=== PATIENT | female | born 1965 | race Caucasian/White ===

== ENCOUNTER → 2019-05-03 07:17 | Outpatient (CLI) | payer OTHER, SELFPAY ==
[2019-05-02 13:27] VITALS: BMI 35.4
[2019-05-03 08:17] LABS: Absolute Lymphocyte Count 2.63 X10^3/uL (0.83-4.51); Absolute Neutrophil Count 5.3 X10^3/uL (2.0-7.7); Basophil# 0.04 X10^3/uL; Basophil% 0.4 % (0-1); Eosinophil# 0.21 X10^3/uL; Eosinophils% 2.3 % (0-5); Hematocrit 44.1 % (37-47); Hemoglobin 14.5 g/dL (12.0-15.0); Lymphocyte # 2.63 X10^3/ul (4.0); Lymphocyte % 28.8 % (19-41); Mean Corp Hgb Conc 32.9 g/dL (32-36); Mean Corpuscular Hgb 29.3 pg (27.0-32.0); Mean Corpuscular Volume 89.1 fL (81-99); Mean Platelet Vol. 10.9 fl (6.2-12.0); Monocyte% 9.9 % (0-10); NRBC Flagged by Analyzer 0 % (0-5); Neutrophil # 5.32 X10^3/uL (2.7-7.7); Neutrophil % 58.3 % (47-70); Platelet Count 361 K/mm3 (150-450); RBC Distribution Width CV 13.2 % (11.6-14.6); RBC Distribution Width SD 42.9 fl (35.1-43.9); Red Blood Count 4.95 M/mm3 (4.2-5.4); White Blood Count 9.1 K/mm3 (4.4-11.0)
[2019-05-03 08:24] LABS: Erythrocyte Sedimentation Rate 46 mm/hr (0-30)
[2019-05-03 08:42] LABS: ALB/GLOB Ratio 0.9 RATIO (0.9-2.4); AST(SGOT) 20 U/L (15-37); Alanine Aminotransfer ALT/SGPT 30 U/L (13-56); Albumin, Serum 3.4 g/dL (3.2-5.0); Alkaline Phosphatase 141 U/L (45-117); Amylase 98 U/L (25-115); Anion Gap 10 (5-15); BUN 18 mg/dL (7-18); BUN/Creat Ratio 22.1 RATIO (10-20); Calcium,Total 9.2 mg/dL (8.5-10.1); Chloride 102 mmol/L (98-107); Creatinine, Serum 0.81 mg/dL (0.55-1.02); EST Glomerular Filtration Rate 78 mL/min (>60); Est Glom Filt Rate - Afr Amer 94 mL/min (>60); Globulin 3.7 g/dL (2.2-4.2); Glucose 92 mg/dL (74-106); Potassium 4.1 mmol/L (3.5-5.1); Protein, Total 7.1 g/dL (6.4-8.2); Sodium Level 140 mmol/L (136-145)
[2019-05-03 12:52] LABS: Cholesterol 212 mg/dL (200); High Density Lipoprotein 53 mg/dL; Thyroid Stim Hormone (TSH) 1.22 uIU/mL (0.358-3.74); Triglycerides 166 mg/dL; Very Low Density Lipoprotein 33 mg/dL (5-40)
== END ==
PROVIDERS: Family Provider Family Medicine; PCP Family Medicine; Referring Provider Surgery; Visit Provider Surgery
DX: Z13.29 Encounter for screening for other suspected endocrine disorder (principal); E78.2 Mixed hyperlipidemia; R10.9 Unspecified abdominal pain
CPT/HCPCS: 36415; 80053; 80061; 82150; 84443; 85025; 85652

== ENCOUNTER → 2019-05-06 11:53 | Outpatient (CLI) | payer OTHER, SELFPAY ==
[2019-05-02 13:27] VITALS: BMI 35.4
--- NOTE | 2019-05-06 11:56 | CT_ITS ---
STUDY: CT ABDOMEN AND PELVIS WITH CONTRAST REASON FOR EXAM: Female, 53 years old. Right lower quadrant pain. RADIATION DOSAGE (If Supplied By Facility): CTDIvol = ( 17.58 ) mGy, DLP = ( 1027.80 ) mGycm TECHNIQUE: Transaxial images were obtained from the dome of the diaphragm to the symphysis pubis with oral contrast. 100ML IV/Oral Isovue 300 was administered. Sagittal and coronal images were reconstructed. Individualized dose optimization techniques were used for this CT. COMPARISON: Bilateral renal ultrasound January 24, 2016. FINDINGS: Seen on the first image is an asymmetric 2.6 x 1.5 cm soft tissue density in the deep aspect of the right breast, not fully included in the [id number]. The visualized lung bases are unremarkable. The visualized portions of the heart are within normal limits. Normal liver. Patent portal vein diameter is 13 mm. Normal gallbladder and extrahepatic biliary system. The diameter of the common bile duct is 4.5 mm. Normal spleen. Normal pancreas. Normal bilateral adrenal glands. Normal right kidney. Normal left kidney. No hydronephrosis. Normal visualized stomach. Normal small intestine. There are multiple distal colonic diverticula consistent with diverticulosis. The appendix is visualized and appears normal. Normal abdominal aorta. There is focal calcific atherosclerotic plaquing along the medial wall of the proximal left common iliac artery without significant stenosis. Normal inferior vena cava. Normal retroperitoneum. Normal urinary bladder. Normal size, mildly retroflexed uterus. The right adnexa, measuring 5.25 x 3.1 x 3.75 cm, is larger than the left, measuring 2.15 x 1.95 x 2.4 cm. No defined cyst or mass is evident, however. Normal abdominal wall. There are degenerative changes with anterior endplate spurring at the lower thoracic spine and degenerative changes with facet arthropathies in the lower lumbar spine. CT/Abdomen/Pelvis WITH Contrast IMPRESSION: 1. Distal colonic diverticulosis without acute diverticulitis. No sign of bowel obstruction. The appendix is normal. 2. The right adnexa is larger than the left, but there is no defined mass or cyst. If clinically indicated, this could be further characterized with ultrasound. 3. 2.6 cm asymmetric soft tissue density in the deep aspect of the right breast, not fully included in the [id number]. Correlation with mammography and possible ultrasound advised. 4. No hydronephrosis. Electronically Signed: J Carlos Mallory MD at 13:59 EDT , Service support ,
== END ==
PROVIDERS: Family Provider Family Medicine; PCP Family Medicine; Referring Provider Family Medicine; Visit Provider Family Medicine
DX: K57.30 Diverticulosis of large intestine without perforation or abscess without bleeding (principal); R10.31 Right lower quadrant pain
CPT/HCPCS: 74177; Q9967; A4216

== ENCOUNTER 2019-05-13 05:57 | Day surgery (SDC) | payer OTHER, SELFPAY ==
--- NOTE | 2019-05-02 06:28 | HP_ITS ---
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 Is patient in pain?: No Allergies No Known Allergies Allergy (Verified 05/02/19 13:28) Medications lisinopril 20 mg-hydrochlorothiazide 12.5 mg tablet 1 tab PO DAILY 05/02/19 [History Confirmed 05/02/19] PFSH Medical History (Updated 05/02/19 @ 18:23 by Jeff Verma MD) Abdominal pain (Acute) Fatigue (Acute) Basal cell carcinoma (Acute) Hypertension (Chronic) History of DVT (deep vein thrombosis) (Acute) Surgical History Hx of basal cell carcinoma excision (Acute) S/P cholecystectomy (Acute) S/P tonsillectomy (Acute) Family History (Updated 05/02/19 @ 13:27 by Lissette Arizmendi) Mother Brain aneurysm Hypertension Father Hypertension Social History (Updated 05/02/19 @ 18:28 by Jeff Verma MD) Smoking Status: Unknown if ever smoked second hand exposure: No alcohol intake: never substance use type: does not use caffeine: Yes what type of physical activity do you participate in: none frequency: does not exercise seatbelt use: always HPI HPI HPI: BALDO QUINN, is a 53 F who presents to the office today for HPI HPI Surgical H&P: Yes HPI: BALDO QUINN, is a 53 F who presents to the office today for surgical consultation regarding abdominal pain. The patient is referred by and a written copy of my surgical consult recommendations will be returned to him. Since the end of February 2019 the patient has been having problems with tight sometimes cramping sharp right lower quadrant pain. On several episodes the pain has doubled her over. It can last a variable period of time but usually not for hours. She felt crampy on one occasion and had emesis. She has also had some epigastric discomfort burning in nature. Is not completely clear whether the 2 are always related. She has no recorded fever or chills or sweats distinctly associated with this. No bright red blood per rectum or melena. There are no dietary changes that make this improved or worse. Defecation does not resolve the issue. She did start ease omeprazole with minimal masking of the epigastric pain. She has had a previous history of biliary dyskinesia and had a lap scopic cholecystectomy which resolved those symptoms. The symptoms appear to be different. She does not have any food fear or food intolerance. To make matters more interesting she has had in the past approximately 3 years ago problems with hematuria. She states that that was extensively evaluated without a particular positive finding. She did have a recent urinalysis performed showing negative leukocytes negative nitrate trace protein and negative glucose with specific gravity of 1.01. I do not see that red cells were identified. ROS General General: Yes weight change and fatigue; no appetite, colon cancer, breast cancer or weakness HEENT HEENT: No difficulty swallowing, eye injury, eye surgery, swollen glands or hoarseness Endo Endocrine: No thyroid disease, diabetes mellitus, thyroid cancer, Hair loss, heat intolerance or cold intolerance Skin Skin: No rash or changing moles Breast Breast: No left breast lump, right breast lump, nipple discharge, breast pain, abnormal mammogram, abnormal US or breast enlargement Musc Musculoskeletal: No back problems, arthritis, rheumatoid arthritis, gout or joint pain Cardio Cardiovascular: Yes high blood pressure; no murmur, pacemaker, heart disease, atrial fibrillation, heart attack, heart stent, palpitations, shortness of breat with exertion or chest pain Psych Psychiatric: No depression, anxiety or hearing voices Resp Respiratory: No shortness of breath, No sleep apnea, No cough, No COPD, No asthma, No emphysema, No wheezing Gastro Gastrointestinal: Yes abdominal pain, Yes nausea or vomiting, No diarrhea, No constipation, No blood in stool, Yes acid reflux, No hemorrhoids, No ulcers, No gallbladder problem, No black,tarry stools Efrem Hematologic: No blood thinners, No blood disorders, No bleeding, No anemia, Yes blood clots Neuro Neurologic: No system reviewed and no additional complaints, except as docu, No as per HPI, No abnormal walking, No abnormal hearing, No abnormal movements, No abnormal speech, No behavioral changes, No burning sensations, No confusion, No seizure-like activity, No unsteadiness, No dizziness, No localized weakness, No frequent falls, No headache(s), No lack of coordination, No loss of vision, No memory loss, No numbness, No other visual disturbances, No radiating pain, No restless legs, No sensory deficit, No fainting, No tingling, No tremor(s), No weakness, No other Exam Const General: cooperative, healthy appearing, comfortable, no acute distress Nutritional Appearance: overweight Orientation: alert, awake, oriented x3 HENMT Head: normal to inspection Eyes General: appearance normal, both eyes and all related structures Chest Breast Palpation: No nipple discharge Other: No CVA percussion tenderness to her back Resp Effort & Inspection: normal respiratory effort Auscultation: clear to auscultation bilaterally Cardio Rate: regular rate Rhythm: regular rhythm Heart Sounds: no murmurs GI Palpation: soft, no hepatosplenomegaly Auscultation: normal bowel sounds Other: The patient was examined upright and supine. No inguinal defect could be identified. No femoral hernia identified bilaterally. Musc Cervical Spine: normal cervical lordosis Skin General: no rashes or lesions noted Neuro Cognition: normal cognition Extrem General: no calf tenderness bilaterally Psych Affect: normal affect Assessment & Plan Problems 1. Right lower quadrant abdominal pain R10.31 Plan Intermittent sharp sometimes crampy right lower quadrant pain of undetermined etiology. She has a possibly connected or possibly separate concern regarding burning epigastric pain. No improving or alleviating features. Clinically benign abdominal exam The etiology to the patient's presenting complaints is indeterminate at this time. I recommend a complete metabolic profile and amylase and sed rate. I recommend a abdominal pelvic CT scan. Subsequent to this plan to proceed with a combined esophagogastroduodenoscopy with possible biopsy and colonoscopy with possible biopsy or polypectomy as indicated. She does not have a family history of colon cancer. She has not had a previous colonoscopy. I am not clinically detecting a ventral or inguinal hernia. She has not had previous abdominal surgery to increase the likelihood of intermittent bowel obstruction. I certainly appreciate the kind opportunity of assisting with her surgical care. We will try to assist with a definitive diagnosis. CC: Dr.Oliverio Jeff Verma M.D., F.A.C.S. Orders Orders: Colonoscopy Today R10.31 EGD Today R10.13 Abdomen/Pelvis WITH Contrast Today R10.31 Comprehensive Metabolic Profil Today R10.9 Amylase Today R10.9 Erythrocyte Sed Rate Today R10.9 Medications New: lisinopril-hydrochlorothiazide 20-12.5 mg 1 tab PO DAILY Coding Level of Care Code 79916 Diagnoses Right lower quadrant abdominal pain R10.31 ??Abdominal location: right lower quadrant 05/02/191827 <Electronically signed by Jeff marie MD> Date _ Jeff Verma MD I have re-examined the patient. There are no clinical changes since date of exam.
[2019-05-02 13:27] VITALS: BMI 35.4
[2019-05-13] VITALS (7 sets, daily range): BP systolic 102–133; BP diastolic 71–93; PULSE 79–92; RESP 16; TEMP 36.2–36.8; O2SAT 96–98; BMI 37.4
--- NOTE | 2019-05-13 | IMM_PTH ---
PATIENT: BALDO QUINN LOC: EN U#:[id number] AGE/SX: 53/F ROOM: RE05/13/[address]: Dr. Jeff Verma MD : 1965 BED: DIS: 05/13/2019 SPEC #: [id number] RECD: 05/14/19 13:04 STATUS: TRACEY REMyra #: [id number] BERYL: 05/13/19 00:[address]: Jeff Verma DEPT: IMMUNOHISTOCHEMISTRY RECD BY: Akanksha Iyer ENTERED: 05/14/19 13:04 SP TYPE: IMMUNO OTHR DR: Padmini Mcdonald Tissues: B - Stomach, NOS Procedures: H Pylori (initial) PHYSICIAN & INSTITUTION [place] [address] SPECIMEN INFORMATION: Tissue Source: B - Antrum biopsy Clinical Info: Right lower quadrant abdomen pain Specimen Number: [id number] CPT code: 03420 METHODOLOGY: Deparaffinized sections of prefer/formalin-fixed tissue or PAP/DQ stained slides are incubated with monoclonal/polyclonal antibodies/oligonucleotide probes. Localization is made via biotin free immunoperoxidase method. Appropriate controls are performed and reacted as expected. Results on target cell population are indicated in the following table: RESULTS: ANTIBODY / CLONE RESULT Block B H Pylori (polyclonal) negative These tests were developed and their performance characteristics determined by [facility]. They may not have been cleared or approved by the U.S. Food and Drug Administration. The FDA has determined that such clearance or approval is not necessary. INTERPRETATION: B. Antrum, biopsy: Negative for Helicobacter pylori organisms. AM:gracie 05/15/19
--- NOTE | 2019-05-13 | COLBX_PTH ---
PATIENT: BALDO QUINN LOC: EN U#:[id number] AGE/SX: 53/F ROOM: RE05/13/[address]: Dr. Jeff Verma MD : 1965 BED: DIS: 05/13/2019 SPEC #: [id number] RECD: 05/13/19 09:11 STATUS: TRACEY DEXTER #: [id number] BERYL: 05/13/19 00:[address]: Jeff Verma DEPT: SURGICAL PATHOLOGY RECD BY: Acosta Glover ENTERED: 05/13/19 12:00 SP TYPE: COLON BX OTHR DR: Padmini Mcdonald Tissues: A - Duodenum, NOS B - Gastric mucous membrane C - Stomach, NOS D - Esophagus, NOS E - COLON BIOPSY Procedures: Surgery Specimen Level IV HEADER OPERATION: Colonoscopy, EGD ([facility]) PRE-OP DIAGNOSIS: Right lower quad abdomen pain TISSUE SUBMITTED: A - Duodenum biopsy, B - Antrum biopsy, C - Greater curvature polyp biopsy, D - Distal esophagus biopsy, E - Random colon biopsies MICROSCOPIC DIAGNOSIS A. Duodenum, biopsy: Mild nonspecific chronic inflammation. Mild Miguel's gland hyperplasia. See comment. B. Gastric antrum, biopsy: Mild chronic gastritis. See comment. C. Gastric polyp, greater curvature, biopsy: Fundic gland polyp. D. Distal esophagus, biopsy: Fragments of benign squamous mucosa. No evidence of inflammation. E. Colon, random biopsy: No significant pathologic change. AM:gracie 05/14/19 COMMENT A. There is no significant flattening of villi. No prominent lymphoid aggregates are seen. Clinical correlation is suggested. B. The results of immunohistochemistry for Helicobacter pylori will be reported separately ([id number]). MICROSCOPIC DESCRIPTION Slides are reviewed. GROSS DESCRIPTION A - Received in fixative is one container labeled with the patient's name and designated duodenum biopsy. The specimen consists of two irregular fragments of light narvaez soft tissue that in aggregate measure 0.6 x 0.3 x 0.1 cm. The specimen is totally submitted in one cassette. B - Received in fixative is one container labeled with the patient's name and designated antrum biopsy. The specimen consists of one irregular fragment of light narvaez soft tissue that measures 0.3 x 0.3 x 0.1 cm. The specimen is totally submitted in one cassette. C - Received in fixative is one container labeled with the patient's name and designated greater curvature polyp biopsy. The specimen consists of one irregular fragment of light narvaez soft tissue that measures 0.3 x 0.3 x 0.2 cm. The specimen is totally submitted in one cassette. D - Received in fixative is one container labeled with the patient's name and designated distal esophagus biopsy. The specimen consists of one irregular fragment of light narvaez soft tissue that measures 0.3 x 0.2 x 0.1 cm. The specimen is totally submitted in one cassette. E - Received in fixative is one container labeled with the patient's name and designated random colon biopsy. The specimen consists of multiple irregular fragments of light narvaez soft tissue that in aggregate measure 1.5 x 0.5 x 0.1 cm. The specimen is totally submitted in one cassette. / SJ:rg 05/13/19 TC:3 CPT: 73473 x5
--- NOTE | 2019-05-13 08:14 | OP.ENDO_ITS ---
05/13/2019 Padmini Mcdonald Re : Upper GI endoscopy procedure for Riya Robins Nguyenr Harry This procedure was performed on Monday, May 13, 2019. My impressions and recommendations are as follows: Impressions : - Reflux esophagitis. Biopsied. - 3 cm hiatal hernia. - Erythematous mucosa in the antrum. Biopsied. - A few gastric polyps. Resected and retrieved. - Normal examined duodenum. Biopsied. Recommendations : - Discharge patient to home. - Resume previous diet. - Continue present medications. - Telephone my office for pathology results in 1 week. My findings are described in the full procedure note, which is enclosed. If I can be of further assistance, please feel free to contact me at Doctor phone number(s): Work: . Sincerely, Jeff Verma MD 05/13/2019 8:14:06 AM This report has been signed electronically.
--- NOTE | 2019-05-13 08:16 | OP.ENDO_ITS ---
05/13/2019 Padmini Mcdonald Re : Colonoscopy procedure for Riya Robins Dear Harry This procedure was performed on Monday, May 13, 2019. My impressions and recommendations are as follows: Impressions : - Non-thrombosed internal hemorrhoids and internal hemorrhoids that prolapse with straining, but require manual replacement into the anal canal (Grade III) found on digital rectal exam. - Diverticulosis in the sigmoid colon and in the descending colon. Biopsied. - The examination was otherwise normal. Recommendations : - Discharge patient to home. - Resume previous diet. - Continue present medications. - Repeat colonoscopy in 10 years for screening purposes. - Telephone my office for pathology results in 1 week. My findings are described in the full procedure note, which is enclosed. If I can be of further assistance, please feel free to contact me at Doctor phone number(s): Work: . Sincerely, Jeff Verma MD 05/13/2019 8:16:25 AM This report has been signed electronically.
== END 2019-05-13 09:17 | disposition home or self-care (01) ==
LOC: EN 05:57 → AC 05:59
PROVIDERS: Family Provider Family Medicine; PCP Family Medicine; Referring Provider Family Medicine; Visit Provider Surgery
PROC: 0DJD8ZZ Inspection of Lower Intestinal Tract, Via Natural or Artificial Opening Endoscopic (ICD-10-PCS; CPT 45378; principal; 2019-05-13 07:25)
DX: K21.0 Gastro-esophageal reflux disease with esophagitis (principal); K29.50 Unspecified chronic gastritis without bleeding; K31.7 Polyp of stomach and duodenum; K44.9 Diaphragmatic hernia without obstruction or gangrene; R10.13 Epigastric pain; K64.2 Third degree hemorrhoids; K57.30 Diverticulosis of large intestine without perforation or abscess without bleeding; R10.31 Right lower quadrant pain; I10 Essential (primary) hypertension; E66.3 Overweight; Z68.35 Body mass index [BMI] 35.0-35.9, adult; Z79.899 Other long term (current) drug therapy
CPT/HCPCS: 43239; 45380; 88305; 88342; J7120; J2405

== ENCOUNTER → 2019-05-20 08:35 | Outpatient (CLI) | payer OTHER, SELFPAY ==
[2019-05-02 13:27] VITALS: BMI 35.4
[2019-05-13 06:45] VITALS: BMI 37.4
--- NOTE | 2019-05-20 08:37 | US_ITS ---
STUDY: ULTRASOUND TRANSVAGINAL and transabdominal ultrasound CLINICAL: Female, [address] 05/06/2019 history right lower quadrant pain TECHNIQUE: Transabdominal and Transvaginal COMPARISON: 05/06/2019 CT scan pelvis FINDINGS: Normal uterine size measuring 6.9 x 4.5 x 2.9 cm in maximal craniocaudal dimension. The uterus is partially retroflexed. There are multiple fibroids. There is a fibroid measuring 1.6 x 1.5 x 1.6 cm and the fundus on the side deep to the transvaginal probe with internal vascularity. There is adjacent calcification. There is a hypoechoic mass measuring 1.4 x 1.1 x 0.9 cm towards the fundus. There is an additional hypoechoic mass measuring 1.4 x 0 0.9 to 0.5 cm. The exophytic fibroid seen in the posterior aspect of the uterine fundus is not well visualized on this study but was seen May 06, 2019 image #99 series 1002. Normal endometrial thickness measuring 4 mm. There are no endometrial masses, and there is no fluid in the endometrial cavity. Normal uterine cervix. Normal right ovary, measuring 1.3 x 1.3 x 0.9 cm. There are multiple follicles without a dominant cyst. Within the right adnexa closely abutting the right side of the uterus there is a solid-appearing mass with internal vascularity measuring 4.5 x 3.7 x 3.3 cm. The right gonadal vein extends to this focal mass or region. Normal left ovary, measuring 1.9 x 1.6 x 1.7 cm. There are multiple follicles without a dominant cyst. There is no free fluid in the pelvis. The bladder volume is 45 mL. Polycystic ovary disease: No. US/Pelvic (Non ) IMPRESSION: Multiple fibroid uterus. There is a indeterminant solid mass within the right adnexa. This is in close proximity to the right side of the uterus. This may represent a large exophytic right-sided uterine fibroid or large solid right adnexal mass. It is similar in measurement allowing for the differences in technique compared to the prior study. It measured approximately 5.3 x 2.3 x 3.3 cm on prior study. The differential would include the possibility of a vascular possible ovarian neoplasm. Further imaging could be considered with a follow-up study with laboratory cancer marker values, or potentially MRI of the pelvis for further clarification. Electronically Signed: Bela Al MD at 16:26 EDT Tel , Service support ,
--- NOTE | 2019-05-20 08:37 | BI_ITS ---
MAMMOGRAPHY - BILATERAL DIAGNOSTIC REASON FOR EXAM: Female, 53 years old. Right breast lump. PERTINENT HISTORY: Grandmother with breast cancer. Prior right breast aspiration. TECHNIQUE: Digital bilateral breast stephanie (3D mammographic acquisition) in the CC and MLO projections. 2-D mediolateral oblique (MLO) and craniocaudad (CC) views of both breasts were obtained. CAD: Full Field Digital Mammography with Computer Added Detection was performed. COMPARISON: Comparison is made with prior outside examination dated June 13, 2017. FINDINGS: Breast Composition: The breasts are heterogeneously dense, which may obscure small masses. Several well-defined nodular densities are seen in the right breast. The largest measures 4.5 cm x 4.3 cm. This is in the deep upper central portion of the breast. This most likely is the finding seen on the recent CT scan. These most likely represent cysts. There is also evidence of 2 adjacent well-defined nodules in the central portion of the left breast. The larger measures 2 cm x 1.7 cm. These have decreased in size as compared to prior study. No other significant abnormalities are identified. BI/DIAG MAMM W/CAD, BILAT IMPRESSION: Bilateral breast nodules as described. These most likely represent cysts. These are more prominent in the right breast. The left breast nodules have decreased in size as compared to prior study. ASSESSMENT CATEGORY: BIRADS Category 2: Benign. A letter regarding these results will be sent to the patient by the facility within 30 days. Approximately 10% of breast cancers are not detected by mammography. A normal mammogram should not delay biopsy of a clinically suspicious abnormality. Electronically Signed: Navid Gottlieb, at 10:12 EDT , Service support ,
--- NOTE | 2019-05-20 08:44 | US_ITS ---
STUDY: ULTRASOUND BREAST - RIGHT REASON FOR EXAM: Female, 53 years old. Palpable lump in the right breast. TECHNIQUE: Axial and longitudinal images of the RIGHT breast were performed with a high resolution ultrasound transducer. COMPARISON: None. FINDINGS: RIGHT Breast: There is a 2.9 cm x 1.9 cm x 1.7 cm cyst at the 12:00 position of the breast at 1 cm from nipple. There is a 4.5 cm x 4.2 cm x 1.6 cm cyst at the 11:00 position breast at 2 cm from nipple. There is a 2.1 cm x 2.3 cm x 1.5 cm cyst at the 6:00 position breast at 3 cm from the nipple. They're also evidence of a slightly irregular hypoechoic solid nodule at the 11:00 position breast at 3 cm from nipple. This measures 1.1 cm x 0.8 cm x 1.0 cm. Histologic diagnosis is recommended. US/Breast Limited Unilateral IMPRESSION: 3 cysts seen in the breast as described. Suspicious hypoechoic solid nodule at the 11:00 position in the breast at 3 cm from the nipple measuring 1.1 cm x 0.8 cm x 1 cm. A biopsy is recommended. ASSESSMENT CATEGORY: BIRADS Category 4: Suspicious - Biopsy Should Be Considered. A letter regarding these results will be sent to the patient by the facility within 30 days. Electronically Signed: Navid Gottlieb, at 11:18 EDT , Service support ,
--- NOTE | 2019-05-20 13:44 | US_ITS ---
STUDY: ULTRASOUND TRANSVAGINAL and transabdominal ultrasound CLINICAL: Female, [address] 05/06/2019 history right lower quadrant pain TECHNIQUE: Transabdominal and Transvaginal COMPARISON: 05/06/2019 CT scan pelvis FINDINGS: Normal uterine size measuring 6.9 x 4.5 x 2.9 cm in maximal craniocaudal dimension. The uterus is partially retroflexed. There are multiple fibroids. There is a fibroid measuring 1.6 x 1.5 x 1.6 cm and the fundus on the side deep to the transvaginal probe with internal vascularity. There is adjacent calcification. There is a hypoechoic mass measuring 1.4 x 1.1 x 0.9 cm towards the fundus. There is an additional hypoechoic mass measuring 1.4 x 0 0.9 to 0.5 cm. The exophytic fibroid seen in the posterior aspect of the uterine fundus is not well visualized on this study but was seen May 06, 2019 image #99 series 1002. Normal endometrial thickness measuring 4 mm. There are no endometrial masses, and there is no fluid in the endometrial cavity. Normal uterine cervix. Normal right ovary, measuring 1.3 x 1.3 x 0.9 cm. There are multiple follicles without a dominant cyst. Within the right adnexa closely abutting the right side of the uterus there is a solid-appearing mass with internal vascularity measuring 4.5 x 3.7 x 3.3 cm. The right gonadal vein extends to this focal mass or region. Normal left ovary, measuring 1.9 x 1.6 x 1.7 cm. There are multiple follicles without a dominant cyst. There is no free fluid in the pelvis. The bladder volume is 45 mL. Polycystic ovary disease: No. US/Transvaginal Non- IMPRESSION: Multiple fibroid uterus. There is a indeterminant solid mass within the right adnexa. This is in close proximity to the right side of the uterus. This may represent a large exophytic right-sided uterine fibroid or large solid right adnexal mass. It is similar in measurement allowing for the differences in technique compared to the prior study. It measured approximately 5.3 x 2.3 x 3.3 cm on prior study. The differential would include the possibility of a vascular possible ovarian neoplasm. Further imaging could be considered with a follow-up study with laboratory cancer marker values, or potentially MRI of the pelvis for further clarification. Electronically Signed: Bela Al MD at 16:26 EDT Tel , Service support ,
== END ==
PROVIDERS: Family Provider Family Medicine; PCP Family Medicine; Referring Provider Surgery; Visit Provider Surgery
DX: N60.11 Diffuse cystic mastopathy of right breast (principal); R93.89 Abnormal findings on diagnostic imaging of other specified body structures; D25.9 Leiomyoma of uterus, unspecified; R10.31 Right lower quadrant pain; Z80.3 Family history of malignant neoplasm of breast
CPT/HCPCS: 76642; 76830; 76856; 77062; 77066; 93976; G0279

== ENCOUNTER → 2019-05-27 09:05 | Outpatient (CLI) | payer OTHER, SELFPAY ==
[2019-05-20 11:42] VITALS: BMI 37.4
--- NOTE | 2019-05-23 15:10 | BRBX_PTH ---
PATIENT: BALDO QUINN LOC: [facility] U#:[id number] AGE/SX: 59/F ROOM: RE05/27/[address]: FRENCH Mcguire : 1965 BED: DIS: SPEC #: [id number] RECD: 05/27/19 15:58 STATUS: TRACEY DEXTER #: [id number] BERYL: 05/23/19 15:[address]: Jeff Verma DEPT: SURGICAL PATHOLOGY RECD BY: Josiah Tinoco ENTERED: 05/28/19 09:51 SP TYPE: BREAST BX OTHR DR: FRENCH Mcguire Tissues: Right breast, NOS Procedures: Surgery Specimen Level IV HEADER OPERATION: Right breast biopsy PRE-OP DIAGNOSIS: Right breast abnormal ultrasound TISSUE SUBMITTED: Right breast tissue MICROSCOPIC DIAGNOSIS Right breast, core biopsy: A fragment of benign breast tissue with chronic inflammation, histiocytic reaction and foreign body giant cell reaction. Negative for atypia or malignancy. See comment. SHERI:gracie 05/29/19 COMMENT Correlation with clinical, radiologic findings and appropriate follow up are necessary. MICROSCOPIC DESCRIPTION Slides are reviewed. GROSS DESCRIPTION Received in fixative is one container labeled with the patient's name and designated right breast. The specimen consists of a fragment of narvaez-yellow fibroadipose tissue measuring 0.3 x 0.1 x 0.1 cm. The entire specimen is submitted in one cassette. / SHERI:gracie 05/28/19 TC:5 CPT: 90034
[2019-05-27 11:01] LABS: Estradiol 11.2 pg/mL; Follicle Stimulating Hormone 79.8 mIU/mL
[2019-05-28 11:28] LABS: Cancer Antigen 125 11.1 U/mL (0.0-38.1)
== END ==
PROVIDERS: Family Provider Family Medicine; PCP Family Medicine; Referring Provider Nurse Practitioner Family; Visit Provider Nurse Practitioner Family
DX: N85.9 Noninflammatory disorder of uterus, unspecified (principal); R92.8 Other abnormal and inconclusive findings on diagnostic imaging of breast; Z78.0 Asymptomatic menopausal state
CPT/HCPCS: 36415; 82670; 83001; 86304; 88305

== ENCOUNTER 2019-07-10 05:51 | Day surgery (SDC) | payer OTHER, SELFPAY ==
[2019-05-27 14:42] VITALS: BMI 37.4
--- NOTE | 2019-07-04 13:18 | HP.PCM_ITS ---
History and Physical Date of Admission: 07/10/19 Pre-Op History and Physical ? HPI: The patient is a 53 year old female presenting for pre-operative visit. She is scheduled for?TLH, bilateral salpingectomy, possible right oophorectomy and cystoscopy, for?pelvic pain and fibroids on?07/10/19. ??Procedure discussed along with risks, benefits and complications. ?Other alternatives discussed for management. Consent form signed??Yes.? PAST?MEDICAL?HISTORY PAST MEDICAL HISTORY Diagnosis Date ? Cyst of right ovary ? ? Menorrhagia ? ? PMH - PAST MEDICAL HISTORY OF 2002 ? BLOOD CLOT IN LEFT LEG ON CONTROL ? Superficial basal cell carcinoma ? ? low back ? Unspecified essential hypertension ? ? Uterine fibroid ? ? ? PAST?SURGICAL?HISTORY PAST SURGICAL HISTORY Procedure Laterality Date ? COLONOSCOPY ? 05/13/2019 ? FNA WITH IMAGING ? 03/01/12 ? U/S FNA multiple cysts right breast ? FNA WITH IMAGING ? 09/15/14 ? U/S FNA UIQ left breast cyst ? FNA WITH IMAGING ? 02/28/16 ? U/S FNA UOQ right breast x 2 ? LAP CHOLECYSTECT/CHOLANGIOGRAPHY ? 01-19-11 ? NOVASURE ? 01/22/2013 ? REMOVAL ADENOIDS,PRIMARY,<12 Y/O ? ? ? Adenoidectomy ? REMOVAL OF TONSILS,<12 Y/O ? ? ? Tonsillectomy ? SKIN BIOPSY HX ? 06/02/2017 ? low back ? UPPER GI ? 05/13/2019 ? ? CURRENT?MEDICATIONS Current Outpatient Medications Medication Sig Dispense Refill ? lisinopril-hydrochlorothiazide (PRINZIDE,ZESTORETIC) 20-12.5 mg per tablet Take 1 tablet by mouth once daily. ? 3 ? No current facility-administered medications for this visit.? ? ALLERGIES:?Patient has no known allergies. ? PERSONAL HISTORY:? SOCIAL?HISTORY Social History ??Socioeconomic History ?Marital status: ?Spouse name: JIMENEZ FALLON) ?Number of children: 1 ?Years of education: 12 ?Highest education level: Not on file ??Occupational History ?Occupation: HOMEMAKER ??Social Needs ?Financial resource strain: Not on file ?Food insecurity: ?Worry: Not on file ?Inability: Not on file ?Transportation needs: ?Medical: Not on file ?Non-medical: Not on file ??Tobacco Use ?Smoking status: Never Smoker ?Smokeless tobacco: Never Used ??Substance and Sexual Activity ?Alcohol use: No ?Drug use: No ?Sexual activity: Yes ?Partners: Male ? control/protection: Vasectomy ??Lifestyle ?Physical activity: ?Days per week: Not on file ?Minutes per session: Not on file ?Stress: Not on file ??Relationships ?Social connections: ?Talks on phone: Not on file ?Gets together: Not on file ?Attends [employer]ian service: Not on file ?Active member of club or organization: Not on file ?Attends meetings of clubs or organizations: Not on file ?Relationship status: Not on file ?Intimate partner violence: ?Fear of current or ex partner: Not on file ?Emotionally abused: Not on file ?Physically abused: Not on file ?Forced sexual activity: Not on file ??Other Topics ?Concerns: ?Not on file ??Social History Narrative ?Not on file ? FAMILY HISTORY:? FAMILY?HISTORY FAMILY HISTORY Problem Relation Age of Onset ? Coronary Artery Disease Mother ? ? Diabetes Mother ? ? Hypertension Mother ? ? Lipids Mother ? ? Aneurysm Mother ?BRAIN ? Coronary Artery Disease Father ? ? Hypertension Father ? ? Lipids Father ? ? Breast Cancer Maternal Grandmother ? ? Diabetes Maternal Grandmother ? ? REVIEW OF SYMPTOMS: GENERAL: denies fevers or chills ENDOCRINOLOGY: has not been on steroids Cardiology : denies palpitations or chest pain Respiratory: denies SOB or cough Hematology: denies history of prolonged bleeding or easy bruising or VTE Allergy: Denies history of personal or family history of allergy to anesthesia ? ? PHYSICAL EXAMINATION: ? VITALS:?There were no vitals taken for this visit. ? GENERAL:??The patient is well nourished, well hydrated in no acute distress. ?, The patient is oriented to time, place, and person. NECK:?Supple. No lynphadenopathy, normal thyroid, no thyromegaly. LUNGS:?Clear to auscultation bilaterally. no wheezes, rhonchi or rales HEART:?Regular rate and rhythm, Normal heart sounds and No murmurs or gallops ? IMPRESSION:?uterine fibroids, pelvic pain ? PLAN:???The risks/benefits/alternatives and personal involved for the planned?TLH, bilateral salpintecomty, possible right oophorectomy and cystoscopy?were reviewed with the patient. Her questions were answered to her satisfaction and she desires to proceed. ?Consent was signed. ?I reviewed with her postop instructions and expectations. ? ? I have reviewed and updated past medical and surgical history, medications and allergies. this history and physical was performed in my office on 07/04/2019. Patient is planning on being discharged home same day if able.
--- NOTE | 2019-07-10 06:08 | EKG12_ITS ---
Test Reason : PREOP Blood Pressure : / mmHG Vent. Rate : 085 BPM Atrial Rate : 085 BPM P-R Int : 140 ms QRS Dur : 084 ms QT Int : 378 ms P-R-T Axes : 053 033 033 degrees QTc Int : 449 ms Normal sinus rhythm Septal infarct , age undetermined Abnormal ECG When compared with ECG of 01-APR-2012 06:24, No significant change was found Confirmed by PIERCE BROCK ([id number]), film and video editor LEO SINGER ([id number]) on 07/15/2019 1:32:08 PM Referred By: Minerva Marks Confirmed By:PIERCE BROCK
[2019-07-10 06:40] LABS: Bedside Glucose 85 mg/dL (70-110)
[2019-07-10 06:43] VITALS: BP 136/91; PULSE 85; RESP 14; TEMP 36.4; O2SAT 96; BMI 37.7
[2019-07-10] MEDS: Phenazopyridine 95 MG Tablet 190 MG PO (07:00)
[2019-07-10] MEDS: dexAMETHasone 10 MG/ML Vial 8 MG IV (07:00)
[2019-07-10] MEDS: Acetaminophen 500 MG Tablet 1000 MG PO ×2 (07:00→13:01)
[2019-07-10] MEDS: Celecoxib 200 MG Capsule 400 MG PO (07:00)
[2019-07-10] MEDS: Scopolamine 1mg/72hr Patch 1 PATCH TRANSDERM. (07:01)
[2019-07-10] MEDS: Enoxaparin 40 MG/0.4 ML Syringe SC (07:01)
[2019-07-10] MEDS: Gabapentin 600 MG Tablet PO (07:01)
[2019-07-10] MEDS: Magnesium Sulfate 4gm/100mL 4 GM/100 ML IV.SOLN. IV (07:16)
[2019-07-10] MEDS: Lactated Ringers 1,000 ML 40 ML IV (07:16)
--- NOTE | 2019-07-10 08:00 | HYST_PTH ---
PATIENT: BALDO QUINN LOC: [facility] U#:[id number] AGE/SX: 53/F ROOM: RE07/10/[address]: Dr. Minerva Marks MD : 1965 BED: DIS: 07/10/2019 SPEC #: [id number] RECD: 07/10/19 13:16 STATUS: TRACEY DEXTER #: [id number] BERYL: 07/10/19 08:[address]: Minerva Marks DEPT: SURGICAL PATHOLOGY RECD BY: Josiah Tinoco ENTERED: 07/10/19 13:46 SP TYPE: HYSTERECT OTHR DR: DO Padmini Whiteside Tissues: Uterus, NOS Procedures: Surgery Specimen Level V HEADER OPERATION: ERAS, total LAVH, salpingectomy, right oophorectomy, cystoscopy PRE-OP DIAGNOSIS: Uterine fibroids, pelvic pain TISSUE SUBMITTED: Uterus, cervix, bilateral tubes, right ovary MICROSCOPIC DIAGNOSIS Uterus, cervix, bilateral tubes and right ovary, vaginal hysterectomy, bilateral salpingectomy and right oophorectomy: Cervix - chronic inflammation. Endometrium - focal area of weakly proliferative endometrium. - Changes consistent with status post endometrial ablation. Myometrium - intramural, submucosal and subserosal leiomyomas (largest measuring 4.5 cm in greatest dimension). - Focal adenomyosis. Bilateral fallopian tubes - no pathologic diagnosis. Right ovary - no pathologic diagnosis. SHERI:gracie 07/11/19 MICROSCOPIC DESCRIPTION Slides are reviewed. GROSS DESCRIPTION Received in fixative is one container labeled with the patient's name and designated uterus, cervix, bilateral tubes and right ovary. The specimen consists of uterus with cervix, attached bilateral fallopian tubes and right ovary. A portion of vaginal mucosa is also noted attached to cervix. The specimen also contains a detached nodular piece. The uterus with cervix and detached nodular piece weigh in aggregate 81 cm. The uterus with cervix measures 7 x 5 x 3.5 cm. A subserosal nodule is also noted. A portion of the attached vaginal mucosa measures 3 x 1.5 x 0.3 cm. The serosal surface is focally ragged. The ectocervical mucosa is unremarkable. The external os is oval in contour. The endocervical canal measures 2 cm in length and the endocervical mucosa is narvaez, glistening and unremarkable. The endometrial cavity is markedly stenotic at the internal os and measures 2.5 cm in length and 1 cm in width. The endometrium is narvaez, glistening without any mass lesion and measures <0.1 cm in thickness. Sections of the uterus reveal intramural, submucosal and subserosal nodular masses. The largest mass measures 1.5 cm in greatest dimension. The detached nodular mass measures 4 x 4.5 x 3 cm. Sections of these masses reveal narvaez whorled cut surfaces without areas of hemorrhage, necrosis or cystic degeneration. Sections of subserosal mass reveal focally chocolate brown material. The uninvolved uterine wall measures up to 1.5 cm in thickness. The right fallopian tube measures 5 cm in length and 0.5 cm in diameter. The fimbrial end is identified. The fallopian tube sections reveal unremarkable cut surfaces. The right ovary measures 2 x 1.5 x 0.7 cm. Sections reveal unremarkable cut surfaces. The left fallopian tube is similar appearance to right and measures 5 cm in length and 0.5 cm in diameter. Director Of Religious Life sections are submitted in 11 cassettes as follows: 1 - anterior cervix, 2 - posterior cervix, 3 & 4 - anterior uterine wall, 5 & 6 - posterior uterine wall (cassette 6 also contains the intramural and submucosal nodular mass), 7 - subserosal nodular mass and one intramural nodular mass, 8 & 9 - largest detached nodular mass, 10 - right fallopian tube and ovary, 11 - left fallopian tube. / SHERI:gracie 07/10/19 TC:1 CPT: 72897
[2019-07-10] MEDS: Cefazolin 2 GM in 0.9% Normal Saline 100 ML IV (08:49)
[2019-07-10] MEDS: Bupivacaine Mpf 0.5% 30 ML VIAL (09:19)
--- NOTE | 2019-07-10 11:17 | PCM.OPRPT ---
Report of Operation Date of Procedure: 07/10/19 Pre-Operative Diagnosis: chronic pelvic pain, uterine fibroids Post-Operative Diagnosis: same Surgery/Procedure Performed:: LAVH, RSO, left salpingectomy Description of Surgical Findings:: Ovaries were grossly normal as were the tubes. There is a pedunculated fibroid on the right lateral side of the uterus. It was not adherent to anything. There is a small posterior cervical fibroid that was somewhat adherent to the pelvic wall which will wean the uterosacral ligaments. Uterus grossly normal other than the fibroids radiological equipment specialist: Bethany France radiological equipment specialist: Honey [id number] Special Medications: none Specimen's removed: endometrial curettings Drains: none Estimated Blood Loss (mL): 50 Fluids Replaced: 1000cc LR Description of Procedure: The patient was taken to the operating room where she was prepped and draped in the dorsal lithotomy position. Her arms were tucked to the side and padded and her legs were placed in the yellowfin stirrups. Care was taken to ensure that she was placed in a neurologically safe and neutral position. A weighted speculum was placed in the vagina and the anterior lip of the cervix was grasped with a single-tooth tenaculum. The patient was examined, it was determined she had enough prolapse and mobility of the uterus to do a laparoscopic assisted vaginal hysterectomy instead of a TLH. I was unable to place a uterine manipulator be because of her previous ablation, even when I attempted dilation I was unable to penetrate into the uterus more than 3 cm. The Conn cannula was then attached to a tenaculum to use from uterine manipulation. The Corral catheter was placed to straight drain. Attention was turned to the abdominal portion of the case. Before skin incisions were made they were infiltrated with 0.5% Marcaine solution for local anesthetic. A 5 mm intraumbilical incision was made and while tenting the anterior abdominal wall up with towel clamps a 5 mm blade less trocar and sleeve were advanced directly into the peritoneal cavity. Peritoneal placement was confirmed with the laparoscope the pneumoperitoneum was created, and the underlying abdominal contents were intact. The patient was placed in Trendelenburg and the above findings were noted. Right and left lateral 5 mm trochars were placed under direct visualization without difficulty. The antimesenteric portion of the tube was clamped sealed and transected serially on the left side with the LigaSure device. The right infundibulopelvic ligament was clamped, sealed and transected. The round ligaments were clamped sealed and transected and a window was made in the peritoneum. The left utero-ovarian ligaments wasthen clamped, sealed and transected with the LigaSure device and the pedicles were hemostatic The bladder flap was dissected down with the LigaSure device and blunt dissection and the uterine arteries were then skeletonized. The uterine arteries were clamped, sealed and transected on both sides with the LigaSure device. At this point the pedicles were all examined and found to be hemostatic. Attention was turned to the vaginal portion of the case. 1% lidocaine with dilute epinephrine solution was used to infiltrate the anterior vaginal epithelium over the cervix. An incision was made from 3 to 9:00 across the anterior vaginal epithelium and the vaginal epithelium was dissected back with blunt sharp dissection. The anterior colpotomy incision was made. The vaginal epithelium on each side of the cervix at 3 and 9:00 was clamped, transected and suture ligated. The next pedicle contained the anterior peritoneum and part of the cardinal ligament. The pedicle was was clamped with a Juventino clamp, transected and suture-ligated. Hemostasis was noted. The uterine fundus was brought through the anterior colpotomy incision. The uterosacral ligaments and vaginal cuff were secured with Juventino clamps. The pedicles were transected. The uterus and cervix were then amputated and removed. The pedicles were secured with an 0 Vicryl suture. At this point, the pedicles were all examined and hemostasis was assured. A modified Lopez suture was placed with 2-0 PDS suture. It was placed through the vaginal epithelium into the peritoneal cavity, reefed across the peritoneum to the right uterosacral ligament, back across the posterior peritoneum to the left uterosacral ligament, and then back to the midline and out. The vaginal cuff was then closed in a horizontal fashion with interrupted 0 Vicryl [id number] sutures. Care was taken to secure the vagina to the uterosacral ligaments. The Lopez's suture was then tied down. The Corral catheter was removed and a cystoscopy was performed. The bladder appeared normal and was intact. Both ureteral orifices were noted and both ureteral jets were seen. The cystoscope was removed and the Corral catheter was placed back to straight drain. A sponge stick was placed in the vagina to help place traction against the vaginal cuff. The laparoscope was reinserted into the abdomen and the pneumoperitoneum was re-created. The pedicles were reexamined and found to be hemostatic. The vaginal cuff was hemostatic. The right and left lateral ports were taken out and the sites were hemostatic. The pneumoperitoneum was released and even under low pressure there was no bleeding of any of the pedicles are vaginal cuff. The umbilical port was removed. The umbilical skin incisions were closed with Monocryl suture and skin glue by Dr. Rogel. The vaginal instruments were removed by me and a vaginal sweep was completed by me. The surgery was performed by me with assistance other than the portions dictated as above. There were no qualified residents available for this procedure. All sponge lap and needle counts were correct and the patient was transferred to the recovery room in stable condition. Grafts/Implants Used: none - Complications none - Admit VTE Documentation VTE Present on Admission: No VTE Mechan Device Prophylaxis: SCD's VTE Pharm Prophylaxis ordered?: Yes
[2019-07-10 11:18] VITALS: BP 101/63; BP 136/91; PULSE 84; RESP 16; TEMP 36.3; O2SAT 99
--- NOTE | 2019-07-10 11:28 | DCINST_ITS ---
Discharge Diet: No Restrictions Discharge Activity: Return to Normal Activity, May Not Drive - while taking narcotic pain medications., May Shower May resume sexual activity in: 6-8 weeks Call your doctor if your incision/area has: Continuous Slow Oozing, Sudden Increased Bleeding, Increased Pain/ Swelling, Increased Redness, Foul Smelling Discharge Call your doctor if you observe: Fever of 101 or Higher, Inability to urinate, Inability to have a bowel movement, Using more than one pad per hour Cleanse incision/area with: Soap & Water Instructions: Laparoscopic Hysterectomy: Your Home Recovery Allergies/Adverse Reactions: Allergies No Known Allergies Allergy (Verified 07/07/19 10:09) Medications to take at Discharge lisinopril 20 mg-hydrochlorothiazide 12.5 mg tablet 1 tab PO DAILY 05/02/19 Primary Care Physician: Padmini Mcdonald [Primary Care Provider] - Test Results: Test results from this visit will be discussed in further detail at your follow- up appointment, if applicable. Please Follow Up With: Minerva Marks MD - [phone] When: 1-2 and 6 weeks or as needed
[2019-07-10 11:30] VITALS: BP 136/91; BP 90/55; PULSE 75; RESP 16; O2SAT 99
[2019-07-10] MEDS: Lactated Ringers 1,000 ML 70 ML IV (11:43)
[2019-07-10 11:45] VITALS: BP 136/91; BP 97/56; PULSE 75; RESP 16; O2SAT 100
[2019-07-10] MEDS: Ketorolac 30 MG/ML Syringe IV (11:53)
[2019-07-10 11:57] VITALS: BP 136/91; PULSE 79; RESP 16; TEMP 36.2; O2SAT 100
[2019-07-10 14:26] LABS: Hematocrit 41.7 % (37-47); Hemoglobin 13.7 g/dL (12.0-15.0); Mean Corp Hgb Conc 32.9 g/dL (32-36); Mean Corpuscular Hgb 29.3 pg (27.0-32.0); Mean Corpuscular Volume 89.3 fL (81-99); Mean Platelet Vol. 10.3 fl (6.2-12.0); Platelet Count 359 K/mm3 (150-450); RBC Distribution Width CV 13.4 % (11.6-14.6); RBC Distribution Width SD 43.9 fl (35.1-43.9); Red Blood Count 4.67 M/mm3 (4.2-5.4); White Blood Count 16.1 K/mm3 (4.4-11.0)
[2019-07-10 14:47] VITALS: BP 110/66; BP 136/91; PULSE 81; RESP 16; TEMP 36.1; O2SAT 94
== END 2019-07-10 16:10 | disposition home or self-care (01) ==
LOC: SDC 05:52 → AC 05:53
PROVIDERS: Family Provider Family Medicine; PCP Family Medicine; Referring Provider Obstetrics & Gynecology; Visit Provider Obstetrics & Gynecology
PROC: 0UT94ZZ Resection of Uterus, Percutaneous Endoscopic Approach (ICD-10-PCS; CPT 58552; principal; 2019-07-10 07:55)
DX: D25.1 Intramural leiomyoma of uterus (principal); D25.0 Submucous leiomyoma of uterus; D25.2 Subserosal leiomyoma of uterus; N80.0 Endometriosis of uterus; R10.2 Pelvic and perineal pain; G89.29 Other chronic pain; I10 Essential (primary) hypertension; Z79.899 Other long term (current) drug therapy
CPT/HCPCS: 58552; 36415; 82962; 85027; 86850; 86900; 86901; 88307; 93005; J7120; J1940; J2405

== ENCOUNTER → 2019-11-12 08:38 | Outpatient (CLI) | payer OTHER, SELFPAY ==
--- NOTE | 2019-11-12 08:39 | BI_ITS ---
MAMMOGRAPHY - UNILATERAL DIAGNOSTIC: RIGHT BREAST REASON FOR EXAM: Female, 54 years old. History of prior ultrasound-guided right breast biopsy. History of prior right breast aspirations. PERTINENT HISTORY: Grandmother with breast cancer. TECHNIQUE: Digital unilateral breast stephanie (3D mammographic acquisition) in the CC and MLO projections. 2-D mediolateral oblique (MLO) and craniocaudad (CC) views of both breasts were obtained. CAD: Full Field Digital Mammography with Computer Added Detection was performed. COMPARISON: Comparison is made with prior examination May 20, 2019. FINDINGS: Breast Composition: The breasts are heterogeneously dense, which may obscure small masses. The previously seen dominant nodular densities in the right breast have decreased in size. The largest presently measures 2.5 cm x 2.7 cm. A tissue clip marker is seen in the superior retroareolar region of the breasts. Stable benign-appearing bilateral axillary lymph nodes. No other significant abnormalities are identified. BI/DIAG MAMM W/CAD, UNILAT IMPRESSION: Interval decrease in size of the previously seen multiple right breast nodules. One year follow-up mammogram recommended. (A) ASSESSMENT CATEGORY: BIRADS Category 2: Benign. A letter regarding these results will be sent to the patient by the facility within 30 days. Approximately 10% of breast cancers are not detected by mammography. A normal mammogram should not delay biopsy of a clinically suspicious abnormality. Electronically Signed: Navid Gottlieb, at 14:50 EST , Service support ,
--- NOTE | 2019-11-12 08:39 | US_ITS ---
STUDY: ULTRASOUND BREAST - RIGHT REASON FOR EXAM: Female, 54 years old. Abnormal screening mammogram. Status post right breast biopsy. TECHNIQUE: Axial and longitudinal images of the RIGHT breast were performed with a high resolution ultrasound transducer. # OF IMAGES: 48 COMPARISON: Comparison is made with prior mammogram done earlier in the day. Comparison is also made with prior sonogram of the right breast dated May 20, 2019. FINDINGS: RIGHT Breast: A tissue clip marker is seen within the 0.8 cm x 0.7 cm x 0.8 cm hypoechoic solid nodule at the 11:00 position of the breast at 2 cm from the nipple. A tissue clip marker seen within it. Multiple cysts are seen. The largest measures 2.5 cm x 2.7 cm x 0.8 cm. This is at the 10:00 position of the breast at 1 cm from the nipple. US/Breast Limited Unilateral IMPRESSION: Status post biopsy of the hypoechoic solid nodule at the 11:00 position of the breast at 2 cm from the nipple. A tissue clip marker seen within it. ASSESSMENT CATEGORY: BIRADS Category 2: Benign. A letter regarding these results will be sent to the patient by the facility within 30 days. Electronically Signed: Navid Gottlieb, at 16:50 EST , Service support ,
== END ==
PROVIDERS: PCP Family Medicine; Referring Provider Surgery; Visit Provider Surgery
DX: R92.8 Other abnormal and inconclusive findings on diagnostic imaging of breast (principal)
CPT/HCPCS: 76642; 77061; 77065; G0279

== ENCOUNTER → 2020-07-20 07:07 | Outpatient (CLI) | payer OTHER, SELFPAY ==
--- NOTE | 2020-07-20 07:10 | BI_ITS ---
MAMMOGRAPHY - BILATERAL SCREENING REASON FOR EXAM: Female, 54 years old. Routine annual screening examination. PERTINENT HISTORY: Grandmother with breast cancer. TECHNIQUE: Digital bilateral breast angelica (3D mammographic acquisition) in the CC and MLO projections. 2-D mediolateral oblique (MLO) and craniocaudad (CC) views of both breasts were obtained. CAD: Full Field Digital Mammography with Computer Added Detection was performed. COMPARISON: Comparison is made with prior study dated 11/12/2019 and 05/20/2019. FINDINGS: Breast Composition: The breasts are heterogeneously dense, which may obscure small masses. Once again, there are well-defined nodules in both breasts. These have been demonstrated to be cysts. Since prior study, the nodular densities have decreased in size. No new nodule is seen. Stable bilateral benign-appearing axillary lymph nodes. No other significant abnormalities are identified. BI/SCREEN MAMM (CAD) W/ANGELICA BILAT IMPRESSION: Interval decrease in size of the bilateral breast nodules. No new nodule is seen. Yearly follow-up mammogram recommended. (A) ASSESSMENT CATEGORY: BIRADS Category 2: Benign. A letter regarding these results will be sent to the patient by the facility within 30 days. Approximately 10% of breast cancers are not detected by mammography. A normal mammogram should not delay biopsy of a clinically suspicious abnormality. [id number] Electronically Signed: Navid Gottlieb, at 10:16 EDT , Service support ,
== END ==
PROVIDERS: PCP Family Medicine; Referring Provider Obstetrics & Gynecology; Visit Provider Obstetrics & Gynecology
DX: Z12.31 Encounter for screening mammogram for malignant neoplasm of breast (principal)
CPT/HCPCS: 77063; 77067

== ENCOUNTER → 2022-06-16 | Outpatient (CLI) | payer OTHER, SELFPAY ==
--- NOTE | 2022-06-16 07:15 | BI_ITS ---
MAMMOGRAPHY - BILATERAL SCREENING REASON FOR EXAM: Female, 56 years old. Routine annual screening examination. PERTINENT HISTORY: Grandmother with breast cancer. Prior right ultrasound-guided breast biopsy. TECHNIQUE: Digital bilateral breast angelica (3D mammographic acquisition) in the CC and MLO projections. 2-D mediolateral oblique (MLO) and craniocaudad (CC) views of both breasts were obtained. CAD: Full Field Digital Mammography with Computer Added Detection was performed. COMPARISON: Comparison is made with prior study dated 07/20/2020 and 11/12/1999 FINDINGS: Breast Composition: The breasts are heterogeneously dense, which may obscure small masses. Stable well-defined nodular densities in the left breast. Several of the previously seen nodular densities in the left breast have decreased in size. A tissue clip marker is once again seen in the slightly upper central portion of the right breast secondary to prior ultrasound-guided biopsy. These bilateral nodular densities represented cysts on prior sonograms. No other significant abnormalities are identified. BI/SCRN MAMM (CAD)W/ANGELICA BILAT IMPRESSION: Stable bilateral screening mammogram. Yearly follow-up mammogram recommended. (A) ASSESSMENT CATEGORY: BIRADS Category 2: Benign. A letter regarding these results will be sent to the patient by the facility within 30 days. Approximately 10% of breast cancers are not detected by mammography. A normal mammogram should not delay biopsy of a clinically suspicious abnormality. [id number] Electronically Signed: Navid Gottlieb MD at 8:41 EDT ,
== END | disposition home or self-care (01) ==
LOC: OPBI 07:13
PROVIDERS: PCP Family Medicine; Referring Provider Family Medicine; Visit Provider Family Medicine
DX: Z12.31 Encounter for screening mammogram for malignant neoplasm of breast (principal)
CPT/HCPCS: 77063; 77067

== ENCOUNTER 2022-09-03 13:18 | Emergency (ER) | payer OTHER, SELFPAY ==
[2022-09-03 13:19] VITALS: BP 182/134; PULSE 113; RESP 16; TEMP 36.6; O2SAT 97; BMI 38.9
--- NOTE | 2022-09-03 13:59 | EKG12_ITS ---
Test Reason : NEURO Blood Pressure : / mmHG Vent. Rate : 091 BPM Atrial Rate : 091 BPM P-R Int : 126 ms QRS Dur : 076 ms QT Int : 338 ms P-R-T Axes : 041 030 038 degrees QTc Int : 415 ms Normal sinus rhythm Normal ECG Confirmed by BOGDAN BORGES, CHENG ([id number]), mapping editor CAREY BUSH ([id number]) on 09/04/2022 12:06:24 PM Referred By: KLEVER Confirmed By:CHENG MCFDADEN MD
--- NOTE | 2022-09-03 14:05 | CT_ITS ---
STUDY: CT BRAIN WITHOUT CONTRAST REASON FOR EXAM: Female, 56 years old. Confusion RADIATION DOSAGE (If Supplied By Facility): CTDIvol = ( 44.99 ) mGy, DLP = ( 832.67 ) mGycm TECHNIQUE: Transaxial CT imaging of the brain was performed without administration of intravenous contrast material. Individualized dose optimization techniques were used for this CT. COMPARISON: No relevant priors. FINDINGS: Normal soft tissue structures. Normal calvarium. Normal size ventricles and extra-axial spaces for the patient''s age. Normal white matter tracts of the cerebral hemispheres. Normal basal ganglia and thalami. Normal brainstem. Normal cerebellum. There is no intracranial hemorrhage. There are no findings of an acute ischemic infarction. Normal visualized paranasal sinuses. CT/Brain/Head without Contrast IMPRESSION: Normal unenhanced CT scan of the brain. Electronically Signed: Ravinder Mcmahan MD at 14:50 EST ,
--- NOTE | 2022-09-03 14:09 | EX.ED.DYSGE1 ---
HPI <TREVON Decker - Last Filed: 09/03/22 15:54> History of Present Illness Chief Complaint: Neuro S/Sx Narrative Narrative: 56-year-old female with PMH of HTN, GERD presents with altered mental status. She remembers Thanksgiving but does not recall any of the events in the days after that. According to her she went out black Sunday shopping with a friend and when going home with him that night did seem to be repeating herself but he did not think much of it. Today was similar so they decided to seek evaluation. She has no headache, visual or speech changes, or focal motor or sensory changes. No recent illness. She takes blood pressure and heartburn medication and was recently on Benadryl and prednisone for a rash from a manicure which has cleared up. No history of stroke or seizures. She is not on aspirin or blood thinners. PFSH <TREVON Decker - Last Filed: 09/03/22 15:54> PFSH Medical History (Updated 09/03/22 @ 17:[address] Charlie Lambert MD) Abdominal pain Abnormal ultrasound of breast Basal cell carcinoma Fatigue History of DVT (deep vein thrombosis) Hypertension Home Medications lisinopril 20 mg-hydrochlorothiazide 12.5 mg tablet 2 tab PO DAILY 05/02/19 [History Last Taken Unknown] Allergy/AdvReac Type Severity Reaction Status Date / Time No Known Allergies Allergy Verified 09/03/22 14:10 Family History Mother Brain aneurysm Hypertension Father Hypertension Surgical History Hx of basal cell carcinoma excision S/P cholecystectomy S/P tonsillectomy Social History (Updated 05/27/19 @ 16:[address] Jeff Verma MD) Smoking Status: Never smoker second hand exposure: No alcohol intake: never substance use type: does not use caffeine: Yes what type of physical activity do you participate in: none frequency: does not exercise seatbelt use: always ROS <TREVON Decker - Last Filed: 09/03/22 15:54> ROS ED ROS Narrative Constitutional: Negative for fever, chills, malaise. Eyes: Negative for visual change. ENT: Negative for sore throat, ear pain, rhinorrhea. CVS: Negative for palpitations, chest pain, syncope. Respiratory: Negative for shortness of breath, cough, orthopnea. GI: Negative for abdominal pain, nausea, vomiting, diarrhea, constipation, melena, hematochezia. : Negative for dysuria, frequency, hematuria. Neuro: Negative for headache, motor/sensory dysfunction. Skin: Negative for rash, abscess, or wound. Musc: Negative for joint pain, swelling, trauma. Heme: Negative for easy bruising, bleeding, lymphadenopathy. EXAM <TREVON Decker - Last Filed: 09/03/22 15:54> Physical Exam Narrative Exam Narrative: CONST: Patient sitting in no acute distress. EYES: Normal inspection. ENT: Normal inspection, moist mucous membranes. NECK: Normal inspection. RESP: No respiratory distress, CTAB. CVS: Regular rate and rhythm, no murmur, no gallop. ABD: Soft and nontender, no guarding or rebound, nondistended, no hepatosplenomegaly. Back: Normal inspection, no CVA tenderness. SKIN: Color normal, no rash, warm, dry, intact. EXTREMITIES: Normal appearance, no pedal edema. NEURO: Oriented x4. 5/5 upper and lower extremity strength, normal sensation, no drift, normal finger-nose and ligs-ft-gcuw bilaterally. No clonus and downgoing Babinski. PSYCH: Normal affect. Const Vital Signs: 09/03/22 13:19 09/03/22 15:50 09/03/22 15:50 Temperature 98 F Temperature Source Temporal Pulse Rate 113 H 103 H 103 H Respiratory Rate 16 17 17 Blood Pressure 182/134 H 163/97 H 163/97 H Blood Pressure Mean 150 119 Pulse Ox 97 Oxygen Delivery Method Room Air Room Air <Dr. Charlie Lambert MD - Last Filed: 09/03/22 17:18> Physical Exam Const Vital Signs: 09/03/22 13:19 09/03/22 15:50 09/03/22 15:50 Temperature 98 F Temperature Source Temporal Pulse Rate 113 H 103 H 103 H Respiratory Rate 16 17 17 Blood Pressure 182/134 H 163/97 H 163/97 H Blood Pressure Mean 150 119 Pulse Ox 97 Oxygen Delivery Method Room Air Room Air MDM <TREVON Decker - Last Filed: 09/03/22 15:54> MDM MDM Narrative Medical decision making narrative: Patient reports: Major for the last 2 days. She has been taking Benadryl and prednisone for a rash that resolved but states she has been sleeping very poorly and under a lot of stress. She appears well and nontoxic. Initial BP was 182/134 with HR 113 but she had not taken her antihypertensives. She took a dose of the home meds and it is improving to 160/97 with HR 103. Her exam is completely benign and she is neurologically intact with NIH of 0. She is a white count of 13.8 with a normal BMP. UA has mild occult blood and leukocyte esterase but no other signs of infection so will be cultured. CT brain shows no acute process. Patient symptoms may be secondary to medication side effects versus psychological with the global amnesia as she has been under a lot of stress. At this time I feel she can stop the medication and follow-up with her primary care doctor. Family was counseled to bring her back if symptoms worsen and she was discharged in stable condition. Lab Data Attestation: I reviewed the patient's lab results. Labs: Laboratory Results - last 24 hr 09/03/22 09/03/22 09/03/22 14:15 14:15 14:15 WBC 13.8 H RBC 5.36 Hgb 16.1 H Hct 48.3 H MCV 90.1 MCH 30.0 MCHC 33.3 RDW Std Deviation 44.7 H RDW Coeff of Kemi 13.5 Plt Count 457 H MPV 10.0 Immature Gran % (Auto) 0.600 Neut % (Auto) 70.4 H Lymph % (Auto) 20.4 Cross % (Auto) 7.9 Eos % (Auto) 0.2 Baso % (Auto) 0.5 Absolute Neuts (auto) 9.7 H Absolute Lymphs (auto) 2.83 Nucleated RBC % 0 Sodium 140 Potassium 3.7 Chloride 105 Carbon Dioxide 28.0 Anion Gap 7 BUN 15 Creatinine 0.86 Estim Creat Clear Calc 59.70 Est GFR (MDRD) Af Amer 88 Est GFR (MDRD) Non-Af 72 BUN/Creatinine Ratio 17.5 Glucose 108 H Calcium 9.6 Urine Color Yellow Urine Clarity Clear Urine pH 7.0 Ur Specific [place] 1.010 Urine Protein Negative Urine Glucose (UA) Normal Urine Ketones Negative Urine Occult Blood 25 H Urine Nitrite Negative Urine Bilirubin Negative Urine Urobilinogen Normal Ur Leukocyte Esterase 100 H Urine RBC 0-5 SEEN Urine WBC 0-5 SEEN Ur Squamous Epith Cells 0-5 SEEN Urine Bacteria 0 SEEN Urine Mucus 0 SEEN Radiography Diagnostic Testing: Clinical Impression(s) from Imaging Studies Brain CT 09/03/22 14:05 IMPRESSION: Normal unenhanced CT scan of the brain. Electronically Signed: Ravinder Mcmahan MD at 14:50 EST Reading Location ID and State: [facility] / [place] , Service support , EKG Initial EKG: Attestation: I personally reviewed and interpreted this EKG as follows: Interpretation: Sinus Rhythm and No Acute Injury Pattern Comments: Normal sinus rhythm at 91 bpm, no acute injury pattern IA interval 126 ms, QRS duration 76 ms, QTC 415 ms <Dr. Charlie Lambert MD - Last Filed: 09/03/22 17:18> MDM MDM Narrative Medical decision making narrative: Patient reports: Major for the last 2 days. She has been taking Benadryl and prednisone for a rash that resolved but states she has been sleeping very poorly and under a lot of stress. She appears well and nontoxic. Initial BP was 182/134 with HR 113 but she had not taken her antihypertensives. She took a dose of the home meds and it is improving to 160/97 with HR 103. Her exam is completely benign and she is neurologically intact with NIH of 0. She is a white count of 13.8 with a normal BMP. UA has mild occult blood and leukocyte esterase but no other signs of infection so will be cultured. CT brain shows no acute process. Patient symptoms may be secondary to medication side effects versus psychological with the global amnesia as she has been under a lot of stress. At this time I feel she can stop the medication and follow-up with her primary care doctor. Family was counseled to bring her back if symptoms worsen and she was discharged in stable condition. Patient was independently seen and examined by me. Laboratory studies were reviewed by me and interpreted by me. Patient was brought to the emergency room because of forgetfulness. She told her she went shopping but did not buy anything. Her friends and said that she did and looked in the car noted that she had bought several gifts. She denies headache. She denies visual, ocular auditory symptoms. Denies trouble speech or swallowing. She denies problems with coordination or balance. She denies respiratory, cardiac or GI symptoms. She denies symptoms. There is no history of head trauma. She is not on anticoagulant. Patient has a nonfocal neurologic exam. She is disoriented. HEENT exam is unremarkable. Heart lung exams unremarkable. Lungs are clear to auscultation. Abdomen soft nontender. Work-up was undertaken for encephalopathy need to evaluate for infectious versus metabolic and rule out intracranial process. White count is slightly elevated. She does have a shift with no bandemia. Basic minimal animal is unremarkable. Urine is unremarkable. CAT scan of the head was unremarkable. Lab Data Labs: Laboratory Results - last 24 hr 09/03/22 09/03/22 09/03/22 14:15 14:15 14:15 WBC 13.8 H RBC 5.36 Hgb 16.1 H Hct 48.3 H MCV 90.1 MCH 30.0 MCHC 33.3 RDW Std Deviation 44.7 H RDW Coeff of Kemi 13.5 Plt Count 457 H MPV 10.0 Immature Gran % (Auto) 0.600 Neut % (Auto) 70.4 H Lymph % (Auto) 20.4 Cross % (Auto) 7.9 Eos % (Auto) 0.2 Baso % (Auto) 0.5 Absolute Neuts (auto) 9.7 H Absolute Lymphs (auto) 2.83 Nucleated RBC % 0 Sodium 140 Potassium 3.7 Chloride 105 Carbon Dioxide 28.0 Anion Gap 7 BUN 15 Creatinine 0.86 Estim Creat Clear Calc 59.70 Est GFR (MDRD) Af Amer 88 Est GFR (MDRD) Non-Af 72 BUN/Creatinine Ratio 17.5 Glucose 108 H Calcium 9.6 Urine Color Yellow Urine Clarity Clear Urine pH 7.0 Ur Specific [place] 1.010 Urine Protein Negative Urine Glucose (UA) Normal Urine Ketones Negative Urine Occult Blood 25 H Urine Nitrite Negative Urine Bilirubin Negative Urine Urobilinogen Normal Ur Leukocyte Esterase 100 H Urine RBC 0-5 SEEN Urine WBC 0-5 SEEN Ur Squamous Epith Cells 0-5 SEEN Urine Bacteria 0 SEEN Urine Mucus 0 SEEN Radiography Diagnostic Testing: Clinical Impression(s) from Imaging Studies Brain CT 09/03/22 14:05 IMPRESSION: Normal unenhanced CT scan of the brain. Electronically Signed: Ravinder Mcmahan MD at 14:50 EST , Discharge Plan Triage Chief Complaint: Neuro S/Sx ED Midlevel Provider: Flores Guillen ED Provider: Charlie Lambert Dx/Rx/DC Orders Clinical Impression: Amnesia, global, transient, Drug side effects, Amnesia memory loss Instructions: ED ADVERSE DRUG REACTION Allergic, ED Confusion Prescriptions: No Action lisinopril-hydrochlorothiazide 20-12.5 mg tablet 2 tab PO DAILY Primary Care Provider: Padmini Mcdonald Referrals: Padmini Mcdonald DO [Primary Care Provider] - Activity Restrictions/Additional Instructions: Stop taking the benadryl and steroids and follow up with your PCP. Disposition Disposition: Home, Self Care Discharge Date/Time: 09/03/22 16:04
[2022-09-03 14:24] VITALS: BMI 38.9
[2022-09-03 14:36] LABS: Bacteria 0 SEEN /hpf (None Seen); Color, Urine Yellow (Yellow); Glucose, Dipstick Normal (Normal); Ketone-Dipstick Negative (Negative); Leukocyte Esterase-Dipstick 100 /ul (Negative); Mucous, Urine 0 SEEN /hpf (<or=2+); Nitrite-Dipstick Negative (Negative); Occult Blood-Urine 25 /ul (Negative); Protein-Dipstick Negative (Negative); Urine Bilirubin Dipstick Negative (Negative); Urine Clarity Clear (Clear); Urine Urobilinogen Normal (Normal)
[2022-09-03 14:37] LABS: Absolute Lymphocyte Count 2.83 X10^3/uL (0.83-4.51); Absolute Neutrophil Count 9.7 X10^3/uL (2.0-7.7); Basophil# 0.07 X10^3/uL; Basophil% 0.5 % (0-1); Eosinophil# 0.03 X10^3/uL; Eosinophils% 0.2 % (0-5); Hematocrit 48.3 % (37-47); Hemoglobin 16.1 g/dL (12.0-15.0); Lymphocyte # 2.83 X10^3/ul (0.83-4.51); Lymphocyte % 20.4 % (19-41); Mean Corp Hgb Conc 33.3 g/dL (32-36); Mean Corpuscular Volume 90.1 fL (81-99); Monocyte# 1.09 X10^3/uL; Monocyte% 7.9 % (0-10); NRBC Flagged by Analyzer 0 % (0-5); Neutrophil # 9.74 X10^3/uL (2.7-7.7); Neutrophil % 70.4 % (47-70); Platelet Count 457 K/mm3 (150-450); RBC Distribution Width CV 13.5 % (11.6-14.6); RBC Distribution Width SD 44.7 fl (35.1-43.9); Red Blood Count 5.36 M/mm3 (4.2-5.4); White Blood Count 13.8 K/mm3 (4.4-11.0)
[2022-09-03 14:58] LABS: Red Blood Cells-Urine 0-5 SEEN /hpf (0-5); Squamous Epithelial Cells - UA 0-5 SEEN /hpf (5-10); White Blood Cells 0-5 SEEN /hpf (0-5)
[2022-09-03 15:04] LABS: Anion Gap 7 (5-15); BUN 15 mg/dL (7-18); BUN/Creat Ratio 17.5 RATIO (10-20); Calcium,Total 9.6 mg/dL (8.5-10.1); Chloride 105 mmol/L (98-107); Creatinine, Serum 0.86 mg/dL (0.55-1.02); EST Glomerular Filtration Rate 72 mL/min (>60); Est Glom Filt Rate - Afr Amer 88 mL/min (>60); Glucose 108 mg/dL (74-106); Potassium 3.7 mmol/L (3.5-5.1); Sodium Level 140 mmol/L (136-145)
[2022-09-03 15:50] VITALS: BP 163/97; PULSE 103; RESP 17
== END 2022-09-03 16:04 | disposition home or self-care (01) ==
PROVIDERS: Physician Assistant; Emergency Provider Emergency Medicine; PCP Family Medicine; Visit Provider Emergency Medicine
DX: R41.3 Other amnesia (principal); I10 Essential (primary) hypertension; T50.995A Adverse effect of other drugs, medicaments and biological substances, initial encounter; Z86.718 Personal history of other venous thrombosis and embolism; Z79.899 Other long term (current) drug therapy
CPT/HCPCS: 70450; 80048; 81001; 85025; 87086; 87088; 93005; 99283; A4216

== ENCOUNTER → 2023-01-17 | Outpatient (CLI) | payer OTHER, SELFPAY ==
[2023-01-17 10:55] LABS: Vitamin D,25 Hydroxy 12.2 ng/mL
[2023-01-17 10:58] LABS: Anion Gap 5 (5-15); BUN 21 mg/dL (7-18); BUN/Creat Ratio 26.9 RATIO (10-20); Calcium,Total 9.6 mg/dL (8.5-10.1); Chloride 104 mmol/L (98-107); Creatinine, Serum 0.78 mg/dL (0.55-1.02); EST Glomerular Filtration Rate 80 mL/min (>60); Est Glom Filt Rate - Afr Amer 97 mL/min (>60); Glucose 100 mg/dL (74-106); Sodium Level 135 mmol/L (136-145)
== END | disposition home or self-care (01) ==
LOC: MTLAB 07:52
PROVIDERS: PCP Family Medicine; Referring Provider Podiatrist; Visit Provider Podiatrist
DX: S92.352A Displaced fracture of fifth metatarsal bone, left foot, initial encounter for closed fracture (principal)
CPT/HCPCS: 36415; 80048; 82306

== ENCOUNTER → 2023-01-18 | Outpatient (CLI) | payer OTHER, SELFPAY ==
--- NOTE | 2023-01-18 10:29 | VDLE_ITS ---
Reason For Study: Edema RIGHT LEFT GSV is normal. GSV is normal. CFV is compressible, spontaneous, phasic, CFV is compressible, spontaneous, phasic, competent and demonstrates normal competent, and demonstrates normal augmentation. augmentation. FV is compressible, spontaneous, phasic, FV is compressible, spontaneous, phasic, competent and demonstrates normal competent and demonstrates normal augmentation. augmentation. POP V is compressible, spontaneous, phasic, POP V is compressible, spontaneous, phasic, competent and demonstrates normal competent and demonstrates normal augmentation. augmentation. T/P Trunk is compressible. T/P Trunk is compressible. PTV is compressible. PTV is compressible. RT PerV is compressible. LT PerV is compressible. Procedure This is a venous duplex using B-mode, color flow and spectral Doppler. Exam performed in department. A preliminary report was called and/or faxed to Dr. Nazario. VL/Venous Duplex US - [place] Extrem Interpretation Summary No evidence for acute deep venous thrombosis bilateral lower extremities with p atent and compressible bilateral great saphenous veins. Ordering Physician: Jeremy Nazario Referring Physician: Padmini Mcdonald Performed By: Sammi Polo RVT
== END | disposition home or self-care (01) ==
LOC: CVS 10:23
PROVIDERS: PCP Family Medicine; Referring Provider Podiatrist; Visit Provider Podiatrist
DX: M79.89 Other specified soft tissue disorders (principal)
CPT/HCPCS: 93970

== ENCOUNTER → 2023-07-11 | Outpatient (CLI) | payer OTHER, SELFPAY ==
--- NOTE | 2023-07-11 07:46 | BI_ITS ---
MAMMOGRAPHY - BILATERAL SCREENING REASON FOR EXAM: Female, 57 years old. Routine annual screening examination. PERTINENT HISTORY: Grandmother with breast cancer. History of prior right ultrasound guided aspiration. TECHNIQUE: Digital bilateral breast angelica (3D mammographic acquisition) in the CC and MLO projections. 2-D mediolateral oblique (MLO) and craniocaudad (CC) views of both breasts were obtained. CAD: Full Field Digital Mammography with Computer Added Detection was performed. COMPARISON: Comparison is made with prior study dated June 16, 2022 and July 20, 2020. FINDINGS: Breast Composition: The breasts are heterogeneously dense, which may obscure small masses. Once again, there are several bilateral well defined nodular densities in both breasts. These have been shown to be cysts on prior sonogram. A tissue clip marker is seen in the anterior upper slightly lateral aspect of the right breast. The largest density in the left breast measures 1.6 times by 2.9 cm. Stable appearance of the bilateral axillary lymph nodes. No other significant abnormalities are identified. There has been no significant change since the prior study. BI/SCRN MAMM (CAD)W/ANGELICA BILAT IMPRESSION: Stable bilateral screening mammogram. Follow-up examination with ultrasound of both breasts is recommended for further evaluation. ASSESSMENT CATEGORY: BIRADS Category 0: Incomplete. Need additional imaging evaluation. A letter regarding these results will be sent to the patient by the facility within 30 days. Approximately 10% of breast cancers are not detected by mammography. A normal mammogram should not delay biopsy of a clinically suspicious abnormality. [id number] Electronically Signed: Navid Gottlieb MD at 9:02 EDT ,
== END | disposition home or self-care (01) ==
LOC: OPBI 07:44
PROVIDERS: PCP Family Medicine; Referring Provider Family Medicine; Visit Provider Family Medicine
DX: Z12.31 Encounter for screening mammogram for malignant neoplasm of breast (principal)
CPT/HCPCS: 77063; 77067

== ENCOUNTER → 2023-07-13 | Outpatient (CLI) | payer OTHER, SELFPAY ==
--- NOTE | 2023-07-13 08:26 | US_ITS ---
STUDY: ULTRASOUND BREAST - BILATERAL REASON FOR EXAM: Female, 57 years old. Abnormal screening mammogram. TECHNIQUE: Axial and longitudinal images of the BILATERAL breast were performed with a high resolution ultrasound transducer. # OF IMAGES: [id number] COMPARISON: Comparison made with prior mammogram July 11, 2023 and prior ultrasound of the right breast dated November 12, 2019. FINDINGS: BILATERAL Breast: Breast was examined with ultrasound. A tissue clip marker is seen within 8 mm x 7 mm x 8 mm hypoechoic solid nodule at the 11:00 position of the breast at 2 cm from nipple. Once again, cysts are seen throughout the breast. The largest cyst measures 1.3 cm x 1.1 cm x 1 cm. US/Breast Complete Bilateral IMPRESSION: Interval decrease in size of the dominant cyst in the right breast. ASSESSMENT CATEGORY: BIRADS Category 2: Benign. A letter regarding these results will be sent to the patient by the facility within 30 days. Electronically Signed: Navid Gottlieb MD at 14:54 EDT ,
== END | disposition home or self-care (01) ==
PROVIDERS: PCP Family Medicine; Referring Provider Family Medicine; Visit Provider Family Medicine
DX: R92.8 Other abnormal and inconclusive findings on diagnostic imaging of breast (principal)
CPT/HCPCS: 76641

== ENCOUNTER → 2023-07-30 | Outpatient (CLI) | payer OTHER, SELFPAY ==
--- NOTE | 2023-07-30 18:47 | CT_ITS ---
HISTORY: PAIN. TECHNIQUE: Helically acquired images were obtained of the abdomen and pelvis after the intravenous administration of 100 mL Isovue-370. Oral contrast also administered. A radiation dose optimization technique was used for this scan. 449 images. COMPARISON: 05/06/2019. FINDINGS: LOWER CHEST: Lung bases clear. Incompletely imaged chronic nodularity in the right breast. BOWEL: Bowel including appendix nondilated. Colonic diverticulosis without focal inflammatory change observed. PERITONEUM: No significant ascites. LIVER: No enhancing mass. GALLBLADDER/BILIARY TREE: Gallbladder not visualized. SPLEEN/PANCREAS: Homogeneous and nonenlarged. KIDNEYS/ADRENAL GLANDS: Unremarkable. VESSELS: No abdominal aortic aneurysm. Mild atherosclerosis. PELVIC ORGANS: Absent uterus. BONES: Mild degenerative change. CT/Abdomen/Pelvis WITH Contrast IMPRESSION: Colonic diverticulosis without acute diverticulitis. Unremarkable appendix. Interval hysterectomy. Electronically Signed: Jeanna Willett MD at 15:12 EDT ,
== END | disposition home or self-care (01) ==
PROVIDERS: PCP Family Medicine; Visit Provider Family Medicine
DX: K57.92 Diverticulitis of intestine, part unspecified, without perforation or abscess without bleeding (principal)
CPT/HCPCS: 74177; Q9967